=== PATIENT | male | born 1965 | race American Indian/Alaskan Native ===

== ENCOUNTER 2018-08-17 01:21 | Emergency (ER) | payer MEDICARE, MEDICAID ==
[2018-08-17 02:10] VITALS: BP 131/81
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
== END 2018-08-17 02:22 | disposition home or self-care (01) ==
LOC: ED 01:21
DX: K40.90 Unilateral inguinal hernia, without obstruction or gangrene, not specified as recurrent (principal); Z59.0 Homelessness; F17.200 Nicotine dependence, unspecified, uncomplicated
CPT/HCPCS: 99282; 99283